=== PATIENT | male | born 1980 | race Caucasian/White ===

== ENCOUNTER 2019-05-20 14:46 | Emergency (ER) | payer OTHER ==
[2019-05-20] MEDS ORDERED: MOTRIN 600 MG PO ONE (15:37)
[2019-05-20] MEDS ORDERED: MOTRIN 600 MG ONE (15:40)
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
[2019-05-20 17:56] LABS: Appearance CLEAR (CLEAR); Bilirubin NEGATIVE (NEGATIVE); Blood NEGATIVE Ery/ul (0-5); Glucose NEGATIVE (NEGATIVE); Ketones NEGATIVE (NEGATIVE); Leukocyte Esterase NEGATIVE (NEGATIVE); Nitrite NEGATIVE (NEGATIVE); Protein,Urine Dip NEGATIVE (Negative); Specific Gravity 1.002 (1.005-1.025); Urobilinogen NEGATIVE mg/dL (0-1)
[2019-05-20 18:09] LABS: Bacteria NONE SEEN /HPF (NEGATIVE); RBC NONE SEEN /HPF (0-2); WBC NONE SEEN /HPF (0-5)
[2019-05-20 18:30] VITALS: BP 138/81; PULSE 74
[2019-05-20 18:48] VITALS: O2SAT 98
== END 2019-05-20 18:54 | disposition home or self-care (01) ==
LOC: ED 14:46
DX: S20.20XA Contusion of thorax, unspecified, initial encounter (principal); R03.0 Elevated blood-pressure reading, without diagnosis of hypertension; S39.012A Strain of muscle, fascia and tendon of lower back, initial encounter; V89.2XXA Person injured in unspecified motor-vehicle accident, traffic, initial encounter
CPT/HCPCS: 71046; 72110; 81001; 99284; A9270-GY

== ENCOUNTER 2021-02-06 15:58 | Day surgery (SDC) | payer OTHER ==
[~2021-02-06 15:58] MED LIST: Lactated Ringers 1,000 ML IV ONE
[2021-02-06] MEDS ORDERED: Sodium Chloride 0.9(Preservative Free) 10 ML IJ ONE (15:59)
[2021-02-06] MEDS ORDERED: Decadron 4 MG INJ IV ONE (15:59)
[2021-02-06] MEDS ORDERED: Xylocaine 1% Vial 30 ML PF IJ ONE (15:59)
--- NOTE | 2021-02-06 20:09 | XRAY ---
Indication: C7-T1 GISEL. Intraoperative fluoroscopy provided for 26 seconds. 2 digital spot image submitted for interpretation demonstrates midline posterior needle tip projecting posterior to the cervical thoracic junction. Small amount of contrast injected for needle tip placement. Correlate with intraoperative findings/report.
--- NOTE | 2021-02-07 08:37 | XRAY ---
26 seconds fluoroscopy time in surgery for C7-T1 GISEL.
== END 2021-02-06 18:17 | disposition home or self-care (01) ==
LOC: SDC-PAIN 15:58
PROVIDERS: ATTEND Psychiatry & Neurology Pain Medicine
DX: M54.12 Radiculopathy, cervical region (principal); F41.9 Anxiety disorder, unspecified; F32.9 Major depressive disorder, single episode, unspecified; I26.99 Other pulmonary embolism without acute cor pulmonale; K21.9 Gastro-esophageal reflux disease without esophagitis; I82.409 Acute embolism and thrombosis of unspecified deep veins of unspecified lower extremity; Z79.899 Other long term (current) drug therapy
CPT/HCPCS: 62321; 72040; 77003; J1100; J2001; Q9966

== ENCOUNTER 2022-04-23 18:05 | Emergency (ER) | payer OTHER ==
[2022-04-23 18:22] VITALS: BP 155/95
[2022-04-23] MEDS ORDERED: Adacel Vial IM ONE ×2 (18:31→18:37)
--- NOTE | 2022-04-23 18:37 | ERPHSYRPT ---
- History of Present Illness Source: patient Exam Limitations: no limitations Patient Subjective Stated Complaint: arm pain/wound check Triage Nursing Assessment: Patient ambulated back to ED and transferred self to bed . Patient A+O x3. Patient's skin pink, warm and dry. Patient states last night he was working on his sons car when he stabbed himself in the left lower forearm with needle nose pliers causing a laceration. Patient states he is having pain 08/19. Patient states he also needs a tetanus. Physician History: 42 yo wm w puncture wound to L ventral wrist x 1day. Pt's cleansed wound w betadine and steri-stripped it. Pt needs a Tdap. Wound is closed and without erythema or drainage. Pain is minimal, and strength is symmetric. Occurred: yesterday Method of Injury: incised (Puncture wound) Severity of Pain-Max: mild Severity of Pain-Current: mild Extremities Pain Location: forearm: left Modifying Factors: Improves With: nothing Associated Symptoms: none Allergies/Adverse Reactions: Penicillins Allergy (Verified 04/23/22 18:10) Home Medications: Sertraline HCl 50 mg [Zoloft 50 mg Tablet] 1 tab PO HS 04/23/22 [History] Hx Tetanus, Diphtheria Vaccination/Date Given: No Hx Influenza Vaccination/Date Given: No Hx Pneumococcal Vaccination/Date Given: No Immunizations Up to Date: Yes Travel Risk - International Travel Have you traveled outside of the country in past 3 weeks: No - Coronavirus Screening Are you exhibiting any of the following symptoms?: No Close contact with a COVID-19 positive Pt in past 14-21 Days: No - Vaccine Status Have you recieved a Covid-19 vaccination: Yes 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[employer] - Review of Systems Constitutional: No Symptoms Eyes: No Symptoms Ears, Nose, & Throat: No Symptoms Respiratory: No Symptoms Cardiac: No Symptoms Abdominal/Gastrointestinal: No Symptoms Genitourinary Symptoms: No Symptoms Skin: No Symptoms Neurological: No Symptoms Psychological: No Symptoms Endocrine: No Symptoms Hematologic/Lymphatic: No Symptoms Immunological/Allergic: No Symptoms - Past Medical History Pertinent Past Medical History: No Neurological History: No Pertinent History Cardiac History: No Pertinent History Respiratory History: Bronchitis Endocrine Medical History: No Pertinent History Musculoskeletal History: Fractures, Other Other Medical History: HX OF SHOULDER ISSUES WHEN WORKING FOR [employer]. [employer] AT AGE 10. - Past Surgical History Past Surgical History: No Other Surgical History: tubes in ears as a child - Social History Smoking Status: Former smoker Exposure to second hand smoke: No Drug Use: none Patient Lives Alone: No Significant Family History: no pertinent family hx - Nursing Vital Signs Nursing Vital Signs: Initial Vital Signs Temperature 97.1 F 04/23/22 18:11 Blood Pressure 155/95 04/23/22 18:11 Pain Scale Pain Intensity 1 Hypertensive - Physical Exam General Appearance: no apparent distress Eyes, Ears, Nose, Throat Exam: normal ENT inspection Neck Exam: normal inspection Cardiovascular/Respiratory Exam: normal breath sounds, regular rate/rhythm, heart sounds normal Abdominal Exam: non-tender, soft Back Exam: normal inspection, normal range of motion Shoulder Exam: normal inspection Elbow/Forearm Exam: normal inspection (L ventral wrist [id number]/Clean, dry, and intact/No drainage/Good radial and ulnar pulse/Wrist and timber deadener strength symmetric) Hand Exam: normal inspection Neuro/Tendon Exam: normal sensation, normal motor functions, normal tendon functions, responds to pain, No no evidence tendon injury, No motor deficit Mental Status Exam: alert, oriented x 3, cooperative Skin Exam: normal color, warm, dry, No rash - Course Nursing assessment & vital signs reviewed: Yes Ordered Tests: Medication Summary Discontinued Medications Generic Name Dose Route Start Last Admin Trade Name Blanka PRN Reason Stop Dose Admin Diphtheria/Tetanus/Acell Pertussis 0.5 ml 04/23/22 18:31 04/23/22 18:38 Tdap --Diph,Pertuss(Acell),Tet Vac/Pf 0.5 Ml Vial IM 04/23/22 18:32 0.5 ml .ONCE ONE Administration Diphtheria/Tetanus/Acell Pertussis Confirm 04/23/22 18:37 Tdap --Diph,Pertuss(Acell),Tet Vac/Pf 0.5 Ml Vial Administered 04/23/22 18:38 Dose 0.5 ml IM .STK-MED ONE - Progress Progress Note: 04/23/22 18:42 Tdap Laceration/puncture wound closed nicely per /No drainage/No edema/No erythema/No need to remove steri-strips at this time Counseled pt/family regarding: diagnosis, need for follow-up - Departure Departure Disposition: Home Clinical Impression: Visit for wound check Condition: Stable Critical Care Time: No Referrals: TEVIN,JORDON JC, MD [Primary Care Provider] - Follow up/PCP as directed Instructions: Wound Care (DC) Additional Instructions: Wash laceration w soap/water twice a day Keep steri-strips on until they fall off or 14 days Return to ER for increasing pain/redness/pus/temperature greater than 100.5 Start Doxycycline Prescriptions: Doxycycline Monohydrate 100 mg PO BID #14 cap
== END 2022-04-23 18:54 | disposition home or self-care (01) ==
LOC: ED 18:05
DX: S61.532A Puncture wound without foreign body of left wrist, initial encounter (principal); W27.8XXA Contact with other nonpowered hand tool, initial encounter; Z79.899 Other long term (current) drug therapy
CPT/HCPCS: 90471; 90715; 99282

== ENCOUNTER 2022-04-30 17:14 | Emergency (ER) | payer OTHER ==
--- NOTE | 2022-04-30 17:47 | ERPHSYRPT ---
- History of Present Illness Source: patient Exam Limitations: no limitations Patient Subjective Stated Complaint: PT HERE FOR BLOOD IN URINE AND BURNING WITH URINATION STARTED TODAY, Triage Nursing Assessment: PT ALERT, WALKED IN, FACE MASK IN PLACE, FLUSHED SKIN . ABD SOFT, RESP EASY, Physician History: 42 yo wm w dysuria/hematuria/frequency since 12:00PM today. He has a borderline fever upon presentation but denies any pain. Trauma is denied. Pt is on Eliquis for h/o DVT/PE. Timing/Duration: other (Noon today) Activites at Onset: rest Quality: other (No pain) Onset Location: unknown Pain Radiation: none Severity of Pain-Max: none Severity of Pain-Current: none Modifying Factors: Improves With: nothing, urinating Associated Symptoms: fever, urinary frequency, No abdominal pain, No chills, No diaphoresis, No nausea, No vomiting, No dysuria, No nocturia, No polyuria, No loss of bladder control, No lower back pain, No lumps, No mass, No swelling, No syncope Prior abdominal problems: none Sexual intercourse history: non-contributory Allergies/Adverse Reactions: Penicillins Allergy (Verified 04/30/22 17:24) Home Medications: Sertraline HCl 50 mg [Zoloft 50 mg Tablet] 1 tab PO HS 04/23/22 [History] Rivaroxaban 10 mg Tablet [Xarelto 10 mg Tablet] 10 mg PO DAILY 04/30/22 [History] Hx Tetanus, Diphtheria Vaccination/Date Given: No Hx Influenza Vaccination/Date Given: No Hx Pneumococcal Vaccination/Date Given: No Immunizations Up to Date: Yes Travel Risk - International Travel Have you traveled outside of the country in past 3 weeks: No - Coronavirus Screening Are you exhibiting any of the following symptoms?: No - Vaccine Status Have you recieved a Covid-19 vaccination: Yes 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 - Past Medical History Pertinent Past Medical History: No Neurological History: No Pertinent History Cardiac History: No Pertinent History Respiratory History: Bronchitis Endocrine Medical History: No Pertinent History Musculoskeletal History: Fractures, Other Other Medical History: HX OF SHOULDER ISSUES WHEN WORKING FOR [employer]. [employer] AT AGE 10. - Past Surgical History Past Surgical History: No Other Surgical History: tubes in ears as a child - Social History Smoking Status: Never smoker Exposure to second hand smoke: No Drug Use: none Patient Lives Alone: No Significant Family History: no pertinent family hx - Review of Systems Constitutional: No Symptoms, Fever Eyes: No Symptoms Ears, Nose, & Throat: No Symptoms Respiratory: No Symptoms Cardiac: No Symptoms Abdominal/Gastrointestinal: No Symptoms Genitourinary Symptoms: No Symptoms, Dysuria, Frequency, Hematuria, Urgency Musculoskeletal: No Symptoms Skin: No Symptoms Neurological: No Symptoms Psychological: No Symptoms Endocrine: No Symptoms Hematologic/Lymphatic: No Symptoms Immunological/Allergic: No Symptoms - Nursing Vital Signs Nursing Vital Signs: Initial Vital Signs Temperature 100.4 F 04/30/22 17:33 Pulse Rate 105 H 04/30/22 17:33 Respiratory Rate 18 04/30/22 17:33 Blood Pressure 133/92 04/30/22 17:33 O2 Sat by Pulse Oximetry 96 04/30/22 17:33 Pain Scale Pain Intensity 4 Tachy/Febrile - Physical Exam General Appearance: no apparent distress, anxiety Eye Exam: PERRL/EOMI, eyes nml inspection Ears, Nose, Throat Exam: normal ENT inspection, TMs normal, pharynx normal, moist mucous membranes Neck Exam: normal inspection, non-tender, supple, full range of motion, No meningismus, No mass, No Brudzinski, No Kernig's Respiratory Exam: normal breath sounds, lungs clear, airway intact Cardiovascular Exam: tachycardia, capillary refill <2 sec, No murmur Gastrointestinal/Abdomen Exam: soft, normal bowel sounds, No tenderness Back Exam: normal inspection, normal range of motion, No CVA tenderness, No vertebral tenderness Extremity Exam: normal inspection, normal range of motion Neurologic Exam: alert, oriented x 3, cooperative, 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, normal mood/affect, nml cerebellar function, nml station & gait, sensation nml, No motor deficits, No sensory deficit Skin Exam: normal color, warm, dry, No rash Lymphatic Exam: No adenopathy SpO2 Interpretation: normal SpO2: 96 O2 Delivery: Room Air - Course Nursing assessment & vital signs reviewed: Yes - CT Exams Abdomen/Pelvis CT Interpretation: Discussed w/radiologist (bladder wall thickening/[place]) Ordered Tests: Active Orders 24 hr Category Date Time Status ABDOMEN AND PELVIS W/0 CONTRAS [CT] Stat Exams 04/30/22 19:06 Taken CULTURE,URINE Stat Lab 04/30/22 17:32 Received UA W/RFX CULTURE Stat Lab 04/30/22 17:32 Completed Medication Summary Discontinued Medications Generic Name Dose Route Start Last Admin Trade Name Blanka PRN Reason Stop Dose Admin Sodium Chloride 1,000 mls @ 999 mls/hr 04/30/22 19:32 04/30/22 19:55 Sodium Chloride 0.9% 1000 Ml IV 04/30/22 20:32 999 mls/hr .Q1H1M STA Administration Ceftriaxone Sodium/Dextrose 1 g in 50 mls @ 100 mls/hr 04/30/22 19:32 04/30/22 19:55 Rocephin 1 Gm-D5w 50 Ml Bag IV 04/30/22 20:01 100 ml/hr STAT STA 100 mls/hr Administration Sodium Chloride Confirm 04/30/22 19:51 Sodium Chloride 0.9% 1000 Ml Administered 04/30/22 19:52 Dose 1,000 mls @ ud .ROUTE .STK-MED ONE Ceftriaxone Sodium/Dextrose Confirm 04/30/22 19:51 Rocephin 1 Gm-D5w 50 Ml Bag Administered 04/30/22 19:52 Dose 1 g in 50 mls @ ud IV .STK-MED ONE Trimethoprim/Sulfamethoxazole 1 tab 04/30/22 20:03 04/30/22 20:07 Smz/Tmp Ds Tablet 1 Tablet PO 04/30/22 20:04 1 tab STAT STA Administration Trimethoprim/Sulfamethoxazole Confirm 04/30/22 20:06 Smz/Tmp Ds Tablet 1 Tablet Administered 04/30/22 20:07 Dose 1 tab PO .STK-MED ONE Lab/Rad Data: Laboratory Results 04/30/22 Range/Units 17:32 Urinalys Dipstick Clnc MAIN LAB Urine Color PINK (YELLOW) Urine Appearance SLIGHTLY CLOUDY (CLEAR) Urine pH 7.0 (5-6) Ur Specific [place] 1.010 (1.005-1.025) POC Urine Protein Conf 100 (Negative) Urine Ketones NEGATIVE (NEGATIVE) Urine Nitrite NEGATIVE (NEGATIVE) Urine Bilirubin NEGATIVE (NEGATIVE) Urine Urobilinogen 0.2 (0-1) mg/dL Urine Leukocytes LARGE (NEGATIVE) Urine WBC (Auto) 51-100 (0-5) /HPF Urine RBC (Auto) 6-10 (0-2) /HPF U Hyaline Cast (Auto) 3-5 (0-2) /LPF U Epithel Cells (Auto) RARE (FEW) /HPF Urine Bacteria (Auto) FEW (NEGATIVE) /HPF Urine RBC LARGE (0-5) [place]/ul Urine Mucus (Auto) SLIGHT (NEGATIVE) /HPF Ur Culture Indicated? YES Urine Glucose NEGATIVE (NEGATIVE) mg/dL - Progress Progress Note: 04/30/22 19:49 1L NS bolus 1gm IV Rocephin 04/30/22 20:52 Bactrim DS po x1 Counseled pt/family regarding: lab results, diagnosis, need for follow-up, rad results - Departure Departure Disposition: Home Clinical Impression: UTI (urinary tract infection) Condition: Stable Critical Care Time: No Referrals: JORDON ABARCA MD [Primary Care Provider] - Follow up/PCP as directed Instructions: Urinary Tract Infection, Adult (DC) Additional Instructions: Fluids Start Bactrim twice a day Follow up with your family MD Return to ER for increasing pain or temperature greater than 100.5 Prescriptions: Smz/Tmp Ds Tablet [Bactrim Ds Tablet] 1 tab PO Q12H 5 Days #10 tablet
[2022-04-30 17:54] LABS: Appearance SLIGHTLY CLOUDY (CLEAR); Bilirubin NEGATIVE (NEGATIVE); Dipstick done @ ? MAIN LAB; Glucose NEGATIVE (NEGATIVE); Ketones NEGATIVE (NEGATIVE); Nitrite NEGATIVE (NEGATIVE); Protein,Urine Dip 100 (Negative); RBC LARGE Ery/ul (0-5); Urobilinogen 0.2 mg/dL (0-1)
[2022-04-30 17:57] LABS: Bacteria FEW /HPF (NEGATIVE); Epithelial Cells RARE /HPF (FEW); Mucus SLIGHT /HPF (NEGATIVE); WBC 51-100 /HPF (0-5)
[2022-04-30 17:58] LABS: Urine Cultured Indicated? YES
[2022-04-30] MEDS ORDERED: Sodium Chloride 0.9% 1000 ML 1,000 ML IV STA (19:32)
[2022-04-30] MEDS ORDERED: ROCEPHIN 1 Gm-D5w 50 ml Bag** 1 G/50 ML IVPB IV STA (19:32)
[2022-04-30] MEDS ORDERED: Sodium Chloride 0.9% 1000 ML 1,000 ML ONE (19:51)
[2022-04-30] MEDS ORDERED: ROCEPHIN 1 Gm-D5w 50 ml Bag** 1 G/50 ML IVPB IV ONE (19:51)
[2022-04-30] MEDS ORDERED: BACTRIM DS TABLET PO STA (20:03)
[2022-04-30 20:05] VITALS: BP 113/76; PULSE 92
[2022-04-30] MEDS ORDERED: BACTRIM DS TABLET PO ONE (20:06)
[2022-04-30 20:53] VITALS: O2SAT 96
--- NOTE | 2022-05-01 08:34 | XRAY ---
Indication: Pain with urination. Hematuria. UTI. Multiple contiguous axial images obtained through the abdomen and pelvis without contrast using renal stone protocol. Comparison: None Lung bases clear. Heart not enlarged. No renal calculus or evidence for obstructive uropathy in either system. Right mid and left upper kidney demonstrates a 1 cm cortical cyst. Urinary bladder is normally distended with mild circumferential wall thickening either incomplete distention versus cystitis. No free fluid/air. Noncontrasted stomach and bowel loops appear nonobstructed with normal appendix. Mild diffuse fatty liver. Remaining liver, gallbladder, pancreas, spleen, adrenal glands, kidneys, ureters, bladder, and aorta are unremarkable for noncontrast exam. Osseous structures intact. No ventral or inguinal hernias. Impression: 1. Negative renal calculus or evidence for obstructive uropathy. 2. Urinary bladder wall thickening either incomplete distention versus cystitis. 3. Incidental bilateral renal cysts and fatty liver.
== END 2022-04-30 20:35 | disposition home or self-care (01) ==
LOC: ED 17:14
DX: N39.0 Urinary tract infection, site not specified (principal); R30.0 Dysuria; R31.9 Hematuria, unspecified; R50.9 Fever, unspecified; R35.0 Frequency of micturition; Z79.01 Long term (current) use of anticoagulants; Z79.899 Other long term (current) drug therapy
CPT/HCPCS: 36000; 74176; 81015; 87077; 87086; 87186; 96365; 99284; J0696; A9270-GY

== ENCOUNTER 2023-02-14 17:08 | Emergency (ER) | payer OTHER ==
--- NOTE | 2023-02-14 17:25 | ERPHSYRPT ---
- History of Present Illness Time Seen by Provider: 02/14/23 17:22 Source: patient Exam Limitations: no limitations Physician History: Patient is a 43-year-old white male who day or 3 days ago began having burning dysuria with urination he also had some fever as well as urgency and frequency. 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 Timing/Duration: day(s) (3) Activites at Onset: none Quality: burning, fullness, pressure Onset Location: suprapubic Severity of Pain-Max: severe Severity of Pain-Current: mild Associated Symptoms: urinary frequency Prior abdominal problems: none Sexual intercourse history: non-contributory Allergies/Adverse Reactions: Penicillins Allergy (Verified 02/14/23 17:13) Home Medications: Sertraline HCl 50 mg [Zoloft 50 mg Tablet] 3 tab PO HS 04/23/22 [History] Rivaroxaban 10 mg Tablet [Xarelto 10 mg Tablet] 20 mg PO DAILY 04/30/22 [History] Hx Tetanus, Diphtheria Vaccination/Date Given: No Hx Influenza Vaccination/Date Given: No Hx Pneumococcal Vaccination/Date Given: No Travel Risk - Vaccine Status Have you recieved a Covid-19 vaccination: Yes [employer]: [employer] - Vaccination Dates Dates if Unknown: ? - Past Medical History Pertinent Past Medical History: No Neurological History: No Pertinent History Cardiac History: No Pertinent History Respiratory History: Bronchitis Endocrine Medical History: No Pertinent History Musculoskeletal History: Fractures, Other Other Medical History: HX OF SHOULDER ISSUES WHEN WORKING FOR [employer]. [employer] AT AGE 10. - Past Surgical History Past Surgical History: No Other Surgical History: tubes in ears as a child - Social History Smoking Status: Never smoker Exposure to second hand smoke: No Drug Use: none Patient Lives Alone: No Significant Family History: no pertinent family hx - Review of Systems Constitutional: No Fever, No Chills Eyes: No Symptoms Ears, Nose, & Throat: No Symptoms Respiratory: No Cough, No Dyspnea Cardiac: No Chest Pain, No Edema, No Syncope Abdominal/Gastrointestinal: No Abdominal Pain, No Nausea, No Vomiting, No Diarrhea Genitourinary Symptoms: Dysuria, Frequency, Hesitancy, Urgency, No Penile Discharge Musculoskeletal: No Back Pain, No Neck Pain Skin: No Rash Neurological: No Dizziness, No Focal Weakness, No Sensory Changes Psychological: No Symptoms Endocrine: No Symptoms All Other Systems: Reviewed and Negative - Nursing Vital Signs Nursing Vital Signs: Initial Vital Signs Temperature 96.9 F 02/14/23 17:16 Pulse Rate 97 H 02/14/23 17:16 Respiratory Rate 20 02/14/23 17:16 Blood Pressure 141/81 02/14/23 17:16 O2 Sat by Pulse Oximetry 97 02/14/23 17:16 Pain Scale Pain Intensity 0 - Physical Exam General Appearance: mild distress Eye Exam: PERRL/EOMI Ears, Nose, Throat Exam: pharynx normal, moist mucous membranes Neck Exam: normal inspection, supple Respiratory Exam: normal breath sounds, lungs clear Cardiovascular Exam: regular rate/rhythm, No edema Gastrointestinal/Abdomen Exam: soft, No tenderness Back Exam: normal inspection, No CVA tenderness Extremity Exam: normal inspection, normal range of motion, No pedal edema Neurologic Exam: alert, oriented x 3, cooperative, sensation nml, No motor deficits Skin Exam: normal color, warm, dry, No rash SpO2 Interpretation: normal O2 Delivery: Room Air - Course Nursing assessment & vital signs reviewed: Yes Ordered Tests: Active Orders 24 hr Category Date Time Status UA W/RFX UR CULTURE Stat Lab 02/14/23 17:15 Completed Lab/Rad Data: Laboratory Results 02/14/23 Range/Units 17:15 Urine Color Yellow (Yellow) Urine Appearance Clear (Clear) Urine pH 5.5 (4.6-8.0) Ur Specific [place] 1.015 (1.005-1.030) Urine Protein Negative (Negative) Urine Glucose (UA) Negative (Negative) mg/dL Urine Ketones Negative (Negative) Urine Blood Negative (Negative) Urine Nitrite Negative (Negative) Urine Bilirubin Negative (Negative) Urine Urobilinogen 0.2 (0.2) mg/dL Ur Leukocyte Esterase Small A (Negative) U Hyaline Cast (Auto) NONE SEEN (0-2) /LPF Urine Microscopic RBC 0-2 (0-5) /HPF Urine Microscopic WBC 3-5 (0-5) /HPF Ur Epithelial Cells None Seen (None Seen) /HPF Urine Bacteria None Seen (None Seen) /HPF Urine Culture Reflexed NO (NO) - Progress Progress: unchanged Medical Desision Making - Diagnostic Testing Diagnostic test were ordered, analyzed, and reviewed by me: Yes - Risk of complications Minimal Risk: Minimal risk of morbidity - Departure Departure Disposition: Home Clinical Impression: Prostatitis Condition: Stable Critical Care Time: No Referrals: JORDON ABARCA MD [Primary Care Provider] - Follow up/PCP as directed Instructions: Prostatitis (DC) Prescriptions: Smz/Tmp Ds Tablet [Bactrim Ds Tablet] 1 udtab PO BID 10 Days #20 tablet Levofloxacin [Levofloxacin 500 MG Tablet] 500 mg PO QAM #10 tablet
[2023-02-14 17:31] LABS: Appearance Clear (Clear); Bacteria None Seen /HPF (None Seen); Bilirubin Negative (Negative); Blood Negative (Negative); Epithelial Cells None Seen /HPF (None Seen); Glucose, Urine Negative (Negative); Hyaline Casts NONE SEEN /LPF (0-2); Ketones Negative (Negative); Leukocyte Esterase Small (Negative); Nitrite Negative (Negative); Ph 5.5 (4.6-8.0); Protein,Urine Dip Negative (Negative); RBC 0-2 /HPF (0-5); Specific Gravity 1.015 (1.005-1.030); Urobilinogen 0.2 mg/dL (0.2)
[2023-02-14 17:32] LABS: ADD URINE CULTURE? NO (NO)
[2023-02-14] MEDS ORDERED: BACTRIM DS TABLET PO STA (18:09)
[2023-02-14] MEDS ORDERED: Levofloxacin 500 MG Tablet PO ONE (18:10)
[2023-02-14] MEDS ORDERED: Levofloxacin 500 MG Tablet ONE (18:11)
[2023-02-14] MEDS ORDERED: BACTRIM DS TABLET PO ONE (18:11)
[2023-02-14 18:20] VITALS: BP 132/84; PULSE 84; O2SAT 98
== END 2023-02-14 18:20 | disposition home or self-care (01) ==
LOC: ED 17:08
DX: N41.9 Inflammatory disease of prostate, unspecified (principal); R30.0 Dysuria; R50.9 Fever, unspecified; R35.0 Frequency of micturition; Z79.01 Long term (current) use of anticoagulants; Z79.899 Other long term (current) drug therapy
CPT/HCPCS: 81001; 99283; A9270-GY

== ENCOUNTER 2024-12-27 03:16 | Emergency (ER) | payer OTHER ==
[2024-12-27 03:36] VITALS: TEMP 98.5
--- NOTE | 2024-12-27 03:54 | ERPHSYRPT ---
- History of Present Illness Time Seen by Provider: 12/27/24 03:25 Source: patient Exam Limitations: no limitations Patient Subjective Stated Complaint: pt reports right sided back/rib pain starting last evening, pt reports after work he felt some muscle stiffness but as he was trying to find a position of comfort throughout the night to sleep he was unable to. pt denies any injury or accident. pt reports pain is sharp and worse with movement or deep inspiration. Triage Nursing Assessment: pt is aox3, appears uncomfortable, pt ambulatory to room with a slow gait, afebrile, resps easy and non labored, lung sounds are clear, cap refill < 3 seconds, radial pulses strong and equal, pt skin pink warm dry. Physician History: Patient is a 44-year-old male history of antiphospholipid syndrome history of PE DVT currently on Xarelto presents to our ED for evaluation of acute onset right- sided pleuritic chest pain that is at the right posterolateral rib area. Pain started acutely this morning. Pain described as a constant pain. Pain described as a sharp sensation that is worse with deep inspiration. No trauma no fever no nausea vomiting or diaphoresis. Symptoms are mild to moderate in intensity. Patient voices no other complaints or concerns at this time. Portions of this note were created with voice recognition technology. There may be grammatical, spelling, punctuation or sound alike errors Timing/Duration: today Severity: moderate Modifying Factors: Improves With: nothing Associated Symptoms: denies symptoms Allergies/Adverse Reactions: Penicillins Allergy (Verified 12/27/24 03:35) Home Medications: Phentermine HCl 37.5 mg PO DAILY 12/27/24 [History] Rivaroxaban 10 mg Tablet [Xarelto 10 mg Tablet] 20 mg PO DAILY 12/27/24 [History] Sertraline HCl 50 mg [Zoloft 50 mg Tablet] 150 mg PO DAILY 12/27/24 [History] Hx Tetanus, Diphtheria Vaccination/Date Given: No Hx Influenza Vaccination/Date Given: No Hx Pneumococcal Vaccination/Date Given: No Immunizations Up to Date: No Travel Risk - International Travel Have you traveled outside of the country in past 3 weeks: No - Emerging Infectious Disease Are you exhibiting symptoms associated with any current EIDs: No - Review of Systems Constitutional: No Symptoms, No Fever, No Chills Eyes: No Symptoms Ears, Nose, & Throat: No Symptoms Respiratory: No Symptoms, No Cough, No Dyspnea Cardiac: No Symptoms, No Chest Pain, No Edema, No Syncope Abdominal/Gastrointestinal: No Symptoms, No Abdominal Pain, No Nausea, No Vomiting, No Diarrhea Genitourinary Symptoms: No Symptoms, No Dysuria Musculoskeletal: No Symptoms, No Back Pain, No Neck Pain Skin: No Symptoms, No Rash Neurological: No Symptoms, No Dizziness, No Focal Weakness, No Sensory Changes Psychological: No Symptoms Endocrine: No Symptoms Hematologic/Lymphatic: No Symptoms Immunological/Allergic: No Symptoms All Other Systems: Reviewed and Negative - Past Medical History Pertinent Past Medical History: Yes Neurological History: No Pertinent History ENT History: No Pertinent History Cardiac History: Deep Vein Thrombosis Respiratory History: Bronchitis Endocrine Medical History: No Pertinent History Musculoskeletal History: Fractures, Other GI Medical History: No Pertinent History History: No Pertinent History Psycho-Social History: Anxiety Male Reproductive Disorders: No Pertinent History Other Medical History: HX OF SHOULDER ISSUES WHEN WORKING FOR [employer]. [employer] AT AGE 10. DVT, PE. Antiphospholipid syndrome - Past Surgical History Past Surgical History: Yes Neuro Surgical History: No Pertinent History Cardiac: No Pertinent History Respiratory: No Pertinent History Gastrointestinal: No Pertinent History Genitourinary: No Pertinent History Musculoskeletal: No Pertinent History Male Surgical History: No Pertinent History Other Surgical History: tubes in ears as a child Significant Family History: no pertinent family hx - Social History Smoking Status: Never smoker Exposure to second hand smoke: No Drug Use: none - Social Determinants of Health Will the patient participate in the screening: Declined to provide - Nursing Vital Signs Nursing Vital Signs: Initial Vital Signs O2 Sat by Pulse Oximetry 98 12/27/24 03:17 Pain Scale Pain Intensity 0 - Physical Exam General Appearance: no apparent distress, alert Eye Exam: PERRL/EOMI, eyes nml inspection Ears, Nose, Throat Exam: normal ENT inspection, moist mucous membranes Neck Exam: normal inspection, full range of motion Respiratory Exam: normal breath sounds, lungs clear, airway intact, No respiratory distress Cardiovascular Exam: regular rate/rhythm, normal heart sounds, normal peripheral pulses Gastrointestinal/Abdomen Exam: soft, normal bowel sounds, No tenderness, No mass Back Exam: normal inspection, normal range of motion, No CVA tenderness, No vertebral tenderness Extremity Exam: normal inspection, normal range of motion, pelvis stable Neurologic Exam: alert, oriented x 3, cooperative, normal mood/affect, nml cerebellar function, nml station & gait, sensation nml, No motor deficits Skin Exam: normal color, warm, dry, No rash Lymphatic Exam: No adenopathy SpO2 Interpretation: normal SpO2: 99 O2 Delivery: Room Air - Course Nursing assessment & vital signs reviewed: Yes EKG Interpreted by Me: RATE (115), Sinus Tach, NORMAL AXIS, NORMAL INTERVALS, NORMAL QRS - CT Exams Chest CT Interpretation: Tele-radiologist Report (CT chest reveals pulmonary embolus.) Ordered Tests: Active Orders 24 hr Category Date Time Status Analysis Intern STAT Care 12/27/24 03:31 Completed EKG-ER Only STAT Care 12/27/24 03:30 Completed IV Insertion STAT Care 12/27/24 03:30 Completed Pulse Oximetry (ED) STAT Care 12/27/24 03:30 Completed CHEST WITH CONTRAST [CT] Stat Exams 12/27/24 03:31 Completed CBC W DIFF Stat Lab 12/27/24 04:00 Completed CMP Stat Lab 12/27/24 04:00 Completed TROPONIN Q4H Lab 12/27/24 04:00 Completed TROPONIN Q4H Lab 12/27/24 07:47 Completed Medication Summary Discontinued Medications Generic Name Dose Route Start Last Admin Trade Name Freq PRN Reason Stop Dose Admin Ibuprofen 600 mg 12/27/24 03:41 12/27/24 03:58 Ibuprofen 600 Mg Tablet PO 12/27/24 03:42 600 mg STAT ONE Administration Ibuprofen Confirm 12/27/24 03:57 Ibuprofen 600 Mg Tablet Administered 12/27/24 03:58 Dose 600 mg .ROUTE .STK-MED ONE Lab/Rad Data: Laboratory Result Diagrams 12/27/24 04:00 12/27/24 04:00 Laboratory Results 12/27/24 12/27/24 12/27/24 Range/Units 07:47 04:00 04:00 WBC 6.8 (4.23-9.07) x10^3/uL RBC 4.84 (4.63-6.08) x10^6/uL Hgb 17.7 H (13.7-17.5) g/dL Hct 47.9 (40.1-51.0) % MCV 99.0 H (79.0-92.2) fL MCH 36.6 H (25.7-32.2) pg MCHC 37.0 H (32.3-36.5) g/dL RDW 12.0 (11.6-14.4) % Plt Count 188 (163-337) x10^3/uL MPV 9.7 (9.4-12.4) fL Gran % 66.1 (34.0-67.9) % Immature Gran % (Auto) 0.4 (0.001-0.429) % Nucleat RBC Rel Count 0.0 (0.00-0.2) % Eos # (Auto) 0.28 (0.04-0.54) x10^3/uL Immature Gran # (Auto) 0.03 (0.001-0.031) x10^3u/L Absolute Lymphs (auto) 1.32 (1.32-3.57) x10^3/uL Absolute Monos (auto) 0.63 (0.30-0.82) x10^3/uL Absolute Nucleated RBC 0.00 (0.00-0.012) x10^3u/L Lymphocytes % 19.4 L (21.8-53.1) % Monocytes % 9.3 (5.3-12.2) % Eosinophils % 4.1 (0.8-7.0) % Basophils % 0.7 (0.2-1.2) % Absolute Granulocytes 4.50 (1.78-5.38) x10^3/uL Basophils # 0.05 (0.01-0.08) x10^3/uL Sodium 137 (135-145) mmol/L Potassium 3.8 (3.5-5.1) mmol/L Chloride 105 (98-107) mmol/L Carbon Dioxide 22 (22-30) mmol/L Anion Gap 13.2 (5-15) MEQ/L BUN 5 L (9-20) mg/dL Creatinine 0.83 (0.66-1.25) mg/dL Estimated GFR 110.7 ML/MIN Glucose 107 H (74-106) mg/dL Calcium 9.4 (8.4-10.2) mg/dL Total Bilirubin 0.90 (0.2-1.3) mg/dL AST 37 (17-59) U/L ALT 32 (0-50) U/L Alkaline Phosphatase 80 (38-126) U/L Troponin I < 0.012 < 0.012 (0.000-0.033) ng/mL Serum Total Protein 6.8 (6.3-8.2) g/dL Albumin 4.2 (3.5-5.0) g/dL - Progress Progress: improved Progress Note: Case discussed with Dr. Cote ER physician at [facility] who accepts transfer. Patient accepted at 6:12 AM. Plan of care discussed with patient. He agrees to transfer to [facility] for further evaluation and treatment. -44 year-old male presents to our ED for evaluation of pleuritic chest pain. CTA chest confirms a right sided PE. Patient currently on Xarelto. Patient reports a history of antiphospholipid syndrome. Patient will be transferred for further evaluation and treatment. Complexity of problem addressed is moderate acute complicated. No critical care time. Complex of data reviewed and analyzed as extensive. Test ordered test reviewed results analyzed and correlated clinically with history and physical exam. Management discussed with ER physician at [facility] for accept transfer for further evaluation and treatment. Risk of complication and or risk of morbidity/mortality of patient management is high. Patient requires transfer to higher level of care. Vital stable. Time spent to transfer patient approximately 20 minutes. Plan of care established for shared decision making. No social determinants of health present to impede follow-up. Portions of this note were created with voice recognition technology. There may be grammatical, spelling, punctuation or sound alike errors 12/27/24 06:13 Counseled pt/family regarding: lab results, diagnosis, rad results - Departure Departure Disposition: Transfer Clinical Impression: Pulmonary embolus Condition: Stable Critical Care Time: No Referrals: JORDON ABARCA MD [Primary Care Provider, [facility]] - Follow up/PCP as directed
[2024-12-27] MEDS ORDERED: MOTRIN 600 MG ONE (03:57)
[2024-12-27] MEDS: MOTRIN 600 MG PO ONE (03:58)
[2024-12-27 04:18] LABS: BASOPHIL % 0.7 % (0.2-1.2); Basophil (Absolute #) 0.05 x10^3/uL (0.01-0.08); Eosinophil % 4.1 % (0.8-7.0); Eosinophil (Absolute #) 0.28 x10^3/uL (0.04-0.54); Hematocrit 47.9 % (40.1-51.0); Hemoglobin 17.7 g/dL (13.7-17.5); IMMATURE GRAN # 0.03 x10^3u/L (0.001-0.031); IMMATURE GRAN % 0.4 % (0.001-0.429); Lymphocyte (Absolute #) 1.32 x10^3/uL (1.32-3.57); Lymphocytes % 19.4 % (21.8-53.1); Mean Corpuscular Hemoglobin 36.6 pg (25.7-32.2); Mean Platelet Volume 9.7 fL (9.4-12.4); Monocyte (Absolute #) 0.63 x10^3/uL (0.30-0.82); Monocytes % 9.3 % (5.3-12.2); Neutrophil % 66.1 % (34.0-67.9); Platelet Count 188 x10^3/uL (163-337); Red Blood Count 4.84 x10^6/uL (4.63-6.08); White Blood Count 6.8 x10^3/uL (4.23-9.07)
[2024-12-27 04:25] LABS: ALBUMIN 4.2 g/dL (3.5-5.0); ALKALINE PHOSPHATASE 80 U/L (38-126); ANION GAP 13.2 MEQ/L (5-15); BLOOD UREA NITROGEN 5 mg/dL (9-20); CHLORIDE 105 mmol/L (98-107); Calcium 9.4 mg/dL (8.4-10.2); Carbon Dioxide 22 mmol/L (22-30); Creatinine 1 0.83 mg/dL (0.66-1.25); EST GLOMERULAR FILTRATION RATE 110.7 ML/MIN; Glucose 107 mg/dL (74-106); Potassium 3.8 mmol/L (3.5-5.1); SGOT/AST 37 U/L (17-59); SGPT/ALT 32 U/L (0-50); SODIUM 137 mmol/L (135-145); TROPONIN < 0.012 ng/mL (0.000-0.033); Total Protein 6.8 g/dL (6.3-8.2)
--- NOTE | 2024-12-27 05:08 | XRAY ---
CLINICAL HISTORY: pain COMPARISON: None. TECHNIQUE: Contiguous axial images were obtained from the neck base through the upper abdomen following intravenous administration of contrast material. If IV contrast material had not been administered, the likelihood of detecting abnormalities relevant to the patient's condition would have been substantially decreased. In addition, sagittal and coronal reconstructions were performed. CT scan was performed according to ALARA (as low as reasonable achievable). FINDINGS: Multiple intraluminal hypodense filling defects are noted in distal part of right main pulmonary artery, segmental branches of bilateral lower lobar arteries, right middle lobar arteries and lingular branch- - suggestive of pulmonary embolism. Small subpleural consolidation are noted in the posterior basal segment of right lower lobe. The central airways are patent. There are no pleural effusions. No pneumothorax is seen. No axillary, hilar, or mediastinal adenopathy is identified. The visualized thyroid is unremarkable. The heart, aorta, are of normal size and configuration. No pericardial effusion is identified. Imaged portions of the upper abdomen are unremarkable. No aggressive appearing osseous lesions are identified. IMPRESSION: 1. Multiple intraluminal hypodense filling defects are noted in distal part of right main pulmonary artery, segmental branches of bilateral lower lobar arteries, right middle lobar arteries and lingular branch- - suggestive of pulmonary embolism. 2. Small subpleural consolidation are noted in the posterior basal segment of right lower lobe. Electronically Signed by: Wale Oneal MD. (12/27/2024 05:05:10 EDT)
[2024-12-27 09:50] VITALS: BP 128/86; PULSE 79; RESP 18
[2024-12-28 01:31] VITALS: O2SAT 99
== END 2024-12-27 09:45 | disposition short-term general hospital (02) ==
LOC: ED 03:16
DX: I26.99 Other pulmonary embolism without acute cor pulmonale (principal); R07.81 Pleurodynia; Z79.01 Long term (current) use of anticoagulants; Z79.899 Other long term (current) drug therapy
CPT/HCPCS: 36415; 71260; 80053; 84484; 85025; 93005; 93041; 94760; 99285; A9270-GY